=== PATIENT | female | born 1960 | race Asian ===

== ENCOUNTER 2020-04-01 22:03 | Emergency (ER) | payer OTHER ==
[~2020-04-01] VITALS: Ht 154.9 cm; Wt 54.4 kg
[2020-04-01 22:53] LABS: ABSOLUTE NEUTROPHILS 3.3 thou/uL (1.4-8.2); BASOPHILS 0.6 % (0.0-2.0); EOSINOPHILS 1.2 % (0.0-3.0); HEMATOCRIT 35.9 % (37.0-47.0); HEMOGLOBIN 12.1 gm/dL (12.0-15.0); LYMPHOCYTES 21.1 % (24.0-44.0); MCH 33.6 pg (26.0-34.0); MCHC 33.7 g/dL (28.0-37.0); MONOCYTES 6.8 % (1.0-8.0); PLATELET COUNT 254 thou/uL (150-400); POLYS 70.3 % (36.0-66.0); RBC 3.59 mil/uL (4.20-5.00); RDW 13.7 % (10.5-14.5); WBC 4.7 thou/uL (4.0-11.0)
[2020-04-01 23:08] LABS: ANION GAP 11 mmol/L (7-16); BUN 8 mg/dL (7-18); CALCIUM 8.9 mg/dL (8.5-10.1); CHLORIDE 103 mmol/L (98-107); CO2 23 mmol/L (21-32); CREATININE 0.7 mg/dL (0.6-1.0); GLUCOSE 103 mg/dL (74-106); POTASSIUM 3.5 mmol/L (3.5-5.1); SODIUM 137 mmol/L (136-145)
[2020-04-01 23:18] LABS: ALBUMIN 3.5 g/dL (3.4-5.0); DIRECT BILIRUBIN 0.1 mg/dL (<0.1-0.2); SGOT 17 U/L (15-37); SGPT 18 U/L (14-59); TOTAL BILIRUBIN 0.4 mg/dL (0.2-1.0); TOTAL PROTEIN 7.3 g/dL (6.4-8.2); TROPONIN-I <0.06 ng/mL (<0.06)
[2020-04-02 03:12] VITALS: BP 96/45
[2020-04-02] MEDS ORDERED: PROAIR HFA8.5 GM INH (03:12)
[2020-04-02] MEDS ORDERED: XANAX 0.25 MG0.25 MG PO (03:33)
--- NOTE | 2020-04-02 07:19 | EKG ---
[address] [address] ELECTROCARDIOGRAM REPORT Name: TRUMAN WALTERS JENNIFER Room #: [facility]#: [id number] Admission: 04/01/20 Attend Phys: Discharge: 04/02/20 Date of : 60 Report #: [id number] [facility] ED Test Date: 2020-04-01 Test Time: 22:25:02 Pat Name: TRUMAN WALTERS Department: Room: Gender: Safety Aide: [place] : 1960 Requested By: Kyara Fischer Order Number: [id number] MD: Bal Jimenez Measurements Intervals [place] Rate: 75 P: 81 DE: 153 QRS: 70 QRSD: 80 T: 73 QT: 369 QTc: 413 Interpretive Statements Sinus rhythm Normal tracing No previous ECG available for comparison Electronically Signed On 04-02-2020 7:19:10 [employer] by Bal Jimenez [email or web address] <ELECTRONICALLY SIGNED> By: Bal Jimenez MD, [facility] 04/02/20 0719 2225 2225 Bal Jimenez MD, FACC /EPI
== END 2020-04-02 03:30 | disposition home or self-care (01) ==
LOC: ER 22:03
PROVIDERS: Emergency Medicine
DX: U07.1 COVID-19 (principal); R06.00 Dyspnea, unspecified; R42 Dizziness and giddiness